=== PATIENT | female | born 1965 | race Caucasian/White ===

== ENCOUNTER 2023-04-10 08:31 | Emergency (ER) | payer OTHER, SELFPAY ==
--- NOTE | ~2023-04-10 | XR_ITS ---
EXAMINATION: XR shoulder RT min 2V INDICATION: Right shoulder pain TECHNIQUE: Four views of the right shoulder are submitted. COMPARISON: None FINDINGS: Normal alignment. No fracture. Glenohumeral and acromioclavicular joint spaces are normal. Soft tissues are unremarkable. IMPRESSION: 1. No acute osseous abnormality. Reviewed, dictated and finalized at location L. ER INSULATOR
--- NOTE | ~2023-04-10 | XR_ITS ---
EXAMINATION: XR wrist RT min 3V INDICATION: Right wrist pain TECHNIQUE: Four views of the right wrist are obtained. COMPARISON: None available FINDINGS: Bone alignment is normal. There is no fracture. There is soft tissue swelling of the wrist. IMPRESSION: 1. No acute osseous abnormality. Reviewed, dictated and finalized at location L. CARRIER
--- NOTE | ~2023-04-10 | XR_ITS ---
EXAMINATION: XR elbow RT min 3V INDICATION: Right elbow pain TECHNIQUE: Four views of the right elbow are obtained. COMPARISON: None available FINDINGS: No fracture, dislocation, or subluxation. The bones, soft tissues, and joint spaces are nor mal. IMPRESSION: 1. No acute osseous abnormality. Reviewed, dictated and finalized at location L. LLITE COMMUNICATIONS ENGINEER
[2023-04-10 08:50] VITALS: BP 126/73; PULSE 70; RESP 18; TEMP 36.6; O2SAT 100
--- NOTE | 2023-04-10 10:05 | ED.UPPEXIN ---
HPI - Extremity Injury (Upper) General Chief Complaint: Extremity Injury, Upper Stated Complaint: tripped on sidewalk, KIMBERLY pain Time Seen by Provider: 04/10/23 10:05 Focused HPI: This is a 57-year-old female that presents to the emergency department for right upper extremity pain. Reports she tripped on a curb and fell onto her right shoulder. Reports pain in the shoulder, elbow and wrist. Reports decreased range of motion due to pain. She did not hit her head or lose consciousness. Denies numbness. GENERAL: Well-appearing, well-nourished, and in no acute distress. HEAD: Normocephalic, atraumatic. CHEST: Clear to auscultation. No respiratory distress. HEART: Regular rate and rhythm. EXTREMITIES: Decreased active range of motion in the right shoulder due to pain. No obvious deformity. Normal sensation. Normal radial pulse NEURO: Alert and oriented x3. Patient screened in triage and initial orders placed. Additional care and disposition to be based upon diagnostic testing and treatment. Source: patient Mode of arrival: ambulatory Limitations: no limitations Related Data Allergies Allergy/AdvReac Type Severity Reaction Status Date / Time No Known Drug Allergies Allergy Verified 01/04/11 15:40 Review of Systems Review of Systems: CONSTITUTIONAL: Denies fever MUSCULOSKELETAL: Reports joint pain, and myalgia. NEUROLOGIC: Denies numbness, or weakness. All systems reviewed & are unremarkable except as noted in HPI and below PMFSH Past Medical History Medical History (Updated 04/10/23 @ 12:02 by Alma Gupta PA-C) History of breast cancer Social History Social History (Updated 04/10/23 @ 11:59 by Alma Gupta PA-C) Smoking status: Never smoker Exam Narrative: GENERAL: Well-appearing, well-nourished, and in no acute distress. HEAD: Normocephalic, atraumatic. EYES: PERRLA and EOMI. ENT: Nares clear, no rhinorrhea or epistaxis. Mucous membranes moist. Oropharynx without tonsillar hypertrophy exudate or other lesions. Bilateral TMs pearly chavez non-bulging NECK: Supple. No adenopathy or masses. No midline spinal tenderness CHEST: Clear to auscultation. No respiratory distress. No wheezes rales or rhonchi HEART: Regular rate and rhythm. No murmur heard. Normal peripheral pulses. EXTREMITIES: Normal range of motion. No edema or obvious deformity. Normal sensation. Normal radial pulse SKIN: Warm, dry, no rash. NEURO: No focal deficits. Alert and oriented x3. PSYCH: Normal mood and affect Course Course Emergency Course: Patient updated on her workup and agrees with plan of care Vital Signs Vital signs: Vital Signs Temperature 98 F 04/10/23 08:50 Pulse Rate 70 04/10/23 08:50 Respiratory Rate 18 04/10/23 08:50 Blood Pressure 126/73 04/10/23 08:50 Pulse Oximetry 100 04/10/23 08:50 Oxygen Delivery Room Air 04/10/23 08:50 Temperature 98 F 04/10/23 08:50 Pulse Rate 70 04/10/23 08:50 Respiratory Rate 18 04/10/23 08:50 Blood Pressure 126/73 04/10/23 08:50 Pulse Oximetry 100 04/10/23 08:50 Oxygen Delivery Room Air 04/10/23 08:50 MDM - Extremity Injury (Upper) MDM Narrative Medical decision making narrative: This is a 57-year-old female that presents to the emergency department for right shoulder, elbow and wrist pain after a fall today. She did not hit her head or lose consciousness. She is neurovascularly intact. Right shoulder, elbow, and wrist x-rays are without acute osseous abnormalities. Patient placed in a sling for comfort. Will be given follow-up with Orthopedics. She was updated on her workup and agrees with plan of care. She was given warnings to return to the ER Differential Diagnosis Differential diagnosis: Likely sprain and strain of wrist, dislocation of shoulder and fracture of humerus Imaging Data Radiologist's impression: ITS Impressions Shoulder X-Ray 04/10/23 10:33 IMPRESSION: 1. No acute osseous abnormality
[2023-04-10] MEDS: ACETAMINOPHEN 500 MG TABLET 1000 MG PO (11:45)
== END 2023-04-10 12:25 | disposition home or self-care (01) ==
PROVIDERS: Emergency Provider Physician Assistant; PCP Nurse Practitioner Family
DX: S49.91XA Unspecified injury of right shoulder and upper arm, initial encounter (principal); Z85.3 Personal history of malignant neoplasm of breast; W10.1XXA Fall (on)(from) sidewalk curb, initial encounter
CPT/HCPCS: 73030; 73080; 73110; 99284; A9270

== ENCOUNTER → 2023-04-21 08:55 | Outpatient (CLI) | payer OTHER, SELFPAY ==
--- NOTE | ~2023-04-21 | MR_ITS ---
EXAMINATION: MR shoulder RT wo con DATE: 04/21/2023 09:43 INDICATION: Anterior right shoulder pain. TECHNIQUE: Magnetic resonance imaging (MRI) of the right shoulder was performed without intravenous c ontrast. COMPARISON: Right shoulder radiographs 04/16/2023 FINDINGS: Coracoacromial arch: The acromion undersurface is curved in morphology (type II). There is severe acromioclavicular joint osteoarthritis including inferiorly directed osteophytes. There is moderate subacromial/subdeltoid bu rsitis. Rotator cuff: There is severe supraspinatus tendinopathy and moderate infraspinatus tendinopathy. There is a near f ull-thickness bursal-sided tear of supraspinatus tendon and anterior infraspinatus tendon measuring 1 2 mm anterior to posterior by 4 mm proximal to distal. Teres minor tendon is normal. There is mild camargo bscapularis tendinopathy. There is no asymmetric fatty atrophy of the rotator cuff muscle bellies. Th ere is edema-like marrow signal intensity in greater tuberosity, consistent with stress reaction. Biceps tendon and glenoid labrum: Biceps tendon is in bicipital groove. There is a longitudinal split tear of biceps tendon. There is d egenerative fraying of posterior glenoid labrum. Fluid: There is no glenohumeral joint effusion. Bones/cartilage: Glenoid cartilage is normal. Humeral head cartilage is normal. IMPRESSION: 1. Severe rotator cuff tendinopathy with near full-thickness bursal-sided tear involving supraspinatu s and anterior infraspinatus tendons. 2. Longitudinal split tear of biceps tendon. 3. Degenerative fraying of posterior glenoid labrum. 4. Severe acromioclavicular joint osteoarthritis. 5. Moderate subacromial/subdeltoid bursitis. Reviewed, dictated and finalized at location A. OR SPECIALIST IMPRESSION: 1. Severe rotator cuff tendinopathy with near full-thickness bursal-sided tear involving supraspinatus and anterior infraspinatus tendons. 2. Longitudinal split tear of biceps tendon. 3. Degenerative fraying of posterior glenoid labrum. 4. Severe acromioclavicular joint osteoarthritis. 5. Moderate subacromial/subdeltoid bursitis.
== END ==
PROVIDERS: PCP Nurse Practitioner Family; Visit Provider Nurse Practitioner Family
DX: R07.89 Other chest pain (principal); M75.51 Bursitis of right shoulder; M19.011 Primary osteoarthritis, right shoulder; S43.491D Other sprain of right shoulder joint, subsequent encounter; X58.XXXD Exposure to other specified factors, subsequent encounter
CPT/HCPCS: 73221

== ENCOUNTER 2023-06-01 02:40 | Day surgery (SDC) | payer OTHER, SELFPAY ==
[2023-05-23 14:56] VITALS: BMI 26.6
--- NOTE | 2023-05-23 15:02 | PC.NURSE ---
Report to the Outpatient Waiting Room, entrance under the green pavilion located off [facility], at time 0600 on date 06/01/23. Planned Procedure Time: 0730. Time changes happen often and if your time is changed the preop area will call you the afternoon before. - You and your visitor will be asked to self-screen and do not enter if you have any COVID symptoms. - A mask is optional within the hospital at this time. Patients may have clear liquids (water, carbonated beverages, clear teas, apple juice) until 3 hours prior to surgery with a maximum of 20 ounces. - No food from midnight until time of surgery Take the following medications with a SIP of water the morning of surgery: NONE DO NOT STOP ANY OF YOUR OTHER PRESCRIPTION MEDICATIONS PRIOR TO SURGERY ?EXCEPT THE FOLLOWING Medications to discontinue per physician: N/A Date to take last dose: N/A Please no make-up, nail croatian, hairspray, perfume, deodorant, or body powder the day of surgery. No jewelry (including any body piercings) or valuables the day of surgery, leave them at home. Please take a shower or bath the night before, or the morning of, surgery with an antibacterial soap. Wear comfortable, loose fitting clothing. - Jewelry must be removed prior to entering the operating room. Rings and piercings that are not removed may be cut off. - The hospital will not accept responsibility for valuables. - Please leave all valuables, including medications, at home the day of surgery. If you are going home after surgery, a licensed driver operator must drive you home. - NO public transportation without another adult if you receive anesthesia. - We recommend that an adult stay with you for 24 hours following discharge. - We also recommend that you do not drive, make important decision, drink alcoholic beverages, or take any drugs that were not prescribed by your health care provider for at least 24 hours after your discharge time. Follow any additional instructions given to you from your surgeon. If you or anyone in your household have experienced Covid symptoms in the past week, please notify your surgeon or the nurse liaison at the phone number below for possible testing. Telephone instructions given to PT Roque SUAREZ and asked if any additional questions and then verbalized understanding. Patient advised to call surgeon office or pre surgery nurse liaison [phone] if any additional questions.
[2023-06-01] VITALS (8 sets, daily range): BP systolic 120–138; BP diastolic 68–77; PULSE 70–75; RESP 13–20; TEMP 36.1–36.3; O2SAT 96–100; BMI 27.0
[2023-06-01] MEDS: LACTATED RINGERS 1,000 ML 30 ML IV CONT ×2 (08:55→11:48)
[2023-06-01] MEDS: ACETAMINOPHEN 500 MG TABLET 1000 MG PO (09:08)
[2023-06-01] MEDS: CELECOXIB 200 MG CAPSULE PO (09:08)
--- NOTE | 2023-06-01 09:12 | P.PNAN_ITS ---
Anes - Initial Pre Proc Eval Procedure: Operation Date: 06/01/23 10:30 Proposed Procedures p Right Rotator Cuff Repair - Domingo Diaz MD Date/Time: 06/01/23 09:12 Surgeon: Domingo Diaz MD Pre Op Diagnosis: Rt Shoulder Rot Cuff Tear Patient Data Age: 57 Gender: F Height: 1.63 m Weight: 70.35 kg Allergies Allergy/AdvReac Type Severity Reaction Status Date / Time No Known Allergies Allergy Verified 06/01/23 09:20 Home Medications Medication Instructions Recorded Confirmed Type tamoxifen 20 mg tablet 20 mg PO DAILY 04/20/23 05/23/23 History benzoyl peroxide 5 % topical gel 1 applic topical DAILY #42.5 grams 05/16/23 05/23/23 Rx chlorhexidine gluconate 4 % 1 applic topical ONCE #237 mL 05/16/23 05/23/23 Rx topical liquid (Hibiclens) clindamycin phosphate 1 % topical 1 applic topical DAILY #30 grams 05/16/23 05/23/23 Rx gel Patient hx anesthesia problems: none Family hx anesthesia problems: none Results Review: All pre-operative results and documents have been reviewed as part of the pre- operative evaluation. 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 Results Review: All pre-operative results and documents have been reviewed as part of the pre- operative evaluation. Informed Consent: The patient's anesthetic plan and its attendant risks and benefits were discussed with the patient/family/POA. Questions were solicited and answers provided to the satisfaction of the patient/family/POA.
--- NOTE | 2023-06-01 09:48 | WPDHPUPDATE1 ---
History and Physical Update Update Date/Time: 06/01/23 09:48 History and Physical has been reviewed, including an updated exam of the patient. There are NO changes in the patient's condition. Risks, benefits, and alternatives have been discussed and questions answered. Patient agrees to proceed with procedure.
[2023-06-01] MEDS: ceFAZolin 2 GM/D5W 50 ML 2 GM/50 ML BAG IVPB (10:06)
--- NOTE | 2023-06-01 10:08 | WPDANESPNB ---
Anes - Peripheral Nerve Block Date/Time: 06/01/23 10:08 I have discussed with the patient/family/POA the placement of a peripheral nerve block for post-operative pain management, including associated risks, benefits, complications, and side effects. Alternative methods of post-operative analgesia were detailed. Questions were solicited and answers provided to the satisfaction of the patient/family/POA. Time-Out: A pre-procedural Time-Out was completed immediately before starting the procedure and confirmed: Patient Identification, Site, Procedure, Patient Position and the Availability of Requisite Equipment. Clinical Indications: Acute post-operative pain management requested by the operative surgeon. Nerve Block Insertion Note Anes-nerve block: interscalene right Patient position: supine Skin prep: chlorhexidine Needle: 22 gauge, stimulating, insulated echogenic needle. Needle length: 80 mm Technique: ultrasound Injectate: other (Bupiv 0.5%, 16 mls total. ) Observations: tolerated well Complications: none Procedure start time:: 951 Procedure end time:: 1000
--- NOTE | 2023-06-01 11:37 | W.PM.PROC2 ---
Procedure Note - Detailed Date of Procedure 06/01/23 Pre-op Diagnosis Rt Shoulder Rotator Cuff Tear Post-op Diagnosis Same Procedure Performed REPAIR RIGHT ROTATOR CUFF Surgeon Domingo Diaz MD Anesthesia General Description of Procedure THE PATIENT WAS TAKEN TO THE OPERATING ROOM AND THEN INTUBATED AND PLACED IN THE BEACH CHAIR POSITION. THE RIGHT UPPER EXTREMITY WAS PREPPED AND DRAPED IN THE NORMAL STERILE FASHION. AN INCISION WAS MADE IN BETWEEN THE CHARMAINE-LATERAL ACROMION AND THE AC JOINT. THE FASCIA WAS IDENTIFIED. NEXT A MINI OPEN INCISION WAS MADE THROUGH THE DELTOID MUSCLE EXPOSING THE SUBACROMIAL SPACE. A LIMITED ACROMIOPLASTY WAS PREFORMED. THERE WAS AN EXCESSIVE AMOUNT OF SCARED BURSAE IN THE SUBACROMIAL SPACE. THE BURSAE WAS DEBRIDED. ADHESIONS WERE REMOVED WITH A RONGEUR THE ROTATOR CUFF WAS IDENTIFIED. THERE WAS A FULL THICKNESS TEAR. IT MEASURED APPROXIMATELY 1 CM X 1 CM. THE GREATER TUBEROSITY WAS DEBRIDED TO BLEEDING BONE. 1 ARTHREX 4.5 SUTURE ANCHOR WAS PLACED IN TO GOOD BONE AND HAD VERY GOOD BITES. JEM-RAMBO TYPE REPAIRS WERE DONE TO THE ROTATOR CUFF AND THERE WAS GOOD APPROXIMATION TO THE GREATER TUBEROSITY. THE REPAIR WAS EXCELLENT. THERE WAS NO IMPINGEMENT ON THE REPAIR FROM THE ACROMION WITH RANGE OF MOTION. THE WOUND WAS IRRIGATED WITH COPIOUS AMOUNTS OF ANTIBIOTIC SOLUTION. THE DELTOID MUSCLE WAS REPAIRED WITH #2 FIBER WIRE AND 0 VICRYL SUTURE. THE SUBCUTANEOUS LAYER WAS APPROXIMATED WITH 2-0 VICRYL. THE SKIN WAS APPROXIMATED WITH 3-0 QUIL AND DERMABOND. STERILE DRESSING WAS APPLIED. PATIENT WAS EXTUBATED. Estimated Blood Loss 20 Complications No immediate complications Condition Stable Disposition PACU
== END 2023-06-01 13:36 | disposition home or self-care (01) ==
PROVIDERS: PCP Nurse Practitioner Family; Visit Provider Orthopaedic Surgery
PROC: (CPT 23420; principal; 2023-06-01 10:30)
DX: S46.011A Strain of muscle(s) and tendon(s) of the rotator cuff of right shoulder, initial encounter (principal); W01.0XXA Fall on same level from slipping, tripping and stumbling without subsequent striking against object, initial encounter; G89.18 Other acute postprocedural pain; Z85.3 Personal history of malignant neoplasm of breast; Z79.810 Long term (current) use of selective estrogen receptor modulators (SERMs)
CPT/HCPCS: 23410; 64415; A9270; C1713; J0690; J1100; J1170; J2250; J2371; J2405; J2704; J3010; J7120

== ENCOUNTER 2023-08-14 01:53 | Day surgery (SDC) | payer OTHER, SELFPAY ==
[2023-08-08 15:48] VITALS: BMI 26.6
--- NOTE | 2023-08-08 15:54 | PC.NURSE ---
Report to the Outpatient Waiting Room, entrance under the green pavilion located off [facility], at time _1200_ on date _[id number]_. Planned Procedure Time: _2pm_. Time changes happen often and if your time is changed the preop area will call you the afternoon before. - You and your visitor will be asked to self-screen and do not enter if you have any COVID symptoms. - A mask is optional within the hospital at this time. Patients may have clear liquids (water, carbonated beverages, clear teas, apple juice) until 3 hours prior to surgery with a maximum of 20 ounces. - No food from midnight until time of surgery Take the following medications with a SIP of water the morning of surgery: ___Tamoxifen DO NOT STOP ANY OF YOUR OTHER PRESCRIPTION MEDICATIONS PRIOR TO SURGERY ?EXCEPT THE FOLLOWING Medications to discontinue per physician ____Vitamin d3 Date to take last xpop__[id number] Please no make-up, nail bengali, hairspray, perfume, deodorant, or body powder the day of surgery. No jewelry (including any body piercings) or valuables the day of surgery, leave them at home. Please take a shower or bath the night before, or the morning of, surgery with an antibacterial soap. Wear comfortable, loose fitting clothing. - Jewelry must be removed prior to entering the operating room. Rings and piercings that are not removed may be cut off. - The hospital will not accept responsibility for valuables. - Please leave all valuables, including medications, at home the day of surgery. If you are going home after surgery, a licensed regional company hazmat tanker driver must drive you home. - NO public transportation without another adult if you receive anesthesia. - We recommend that an adult stay with you for 24 hours following discharge. - We also recommend that you do not drive, make important decision, drink alcoholic beverages, or take any drugs that were not prescribed by your health care provider for at least 24 hours after your discharge time. Follow any additional instructions given to you from your surgeon. If you or anyone in your household have experienced Covid symptoms in the past week, please notify your surgeon or the nurse liaison at the phone number below for possible testing. Telephone instructions given to __Denae___and asked if any additional questions and then verbalized understanding. Patient advised to call surgeon office or pre surgery nurse liaison [phone] if any additional questions.
[2023-08-14] VITALS (8 sets, daily range): BP systolic 108–146; BP diastolic 57–80; PULSE 60–71; RESP 12–18; TEMP 36.3–36.6; O2SAT 100
--- NOTE | 2023-08-14 07:12 | WPDHPUPDATE1 ---
History and Physical Update Update Date/Time: 08/14/23 07:12 History and Physical has been reviewed, including an updated exam of the patient. There are NO changes in the patient's condition. Risks, benefits, and alternatives have been discussed and questions answered. Patient agrees to proceed with procedure.
--- NOTE | 2023-08-14 13:36 | WPDANESEPPF ---
Anes - Initial Pre Proc Eval Procedure: Operation Date: 08/14/23 14:00 Proposed Procedures p Right Shoulder Manipulation Under Anesthesia - Domingo Diaz MD Date/Time: 08/14/23 13:36 Surgeon: Domingo Diaz MD Pre Op Diagnosis: Adhesive Capsulitis Right Shoulder Patient Data Age: 58 Gender: F Height: 1.63 m Weight: 73 kg Last Vital Signs Temp 36.6 C 08/14/23 12:30 Pulse 65 08/14/23 12:30 Resp 16 08/14/23 12:30 BP 108/58 L 08/14/23 12:30 Pulse Ox 100 08/14/23 12:30 O2 Del Method Room Air 08/14/23 12:30 Allergies Allergy/AdvReac Type Severity Reaction Status Date / Time No Known Allergies Allergy Verified 08/14/23 12:05 Home Medications Medication Instructions Recorded Confirmed Type tamoxifen 20 mg tablet 20 mg PO DAILY 04/20/23 08/14/23 History cholecalciferol (vitamin D3) 125 125 mcg PO DAILY 08/08/23 08/14/23 History mcg (5,000 unit) tablet (Vitamin D3) Patient hx anesthesia problems: none Family hx anesthesia problems: none Results Review: All pre-operative results and documents have been reviewed as part of the pre-operative evaluation. 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 Informed Consent: The patient's anesthetic plan and its attendant risks and benefits were discussed with the patient/family/POA. Questions were solicited and answers provided to the satisfaction of the patient/family/POA.
[2023-08-14] MEDS: methylPREDNISolone ACETATE 80 MG/ML VIAL 160 MG IM (14:12)
--- NOTE | 2023-08-14 14:27 | W.PM.PROC2 ---
Procedure Note - Detailed Date of Procedure 08/14/23 Pre-op Diagnosis Adhesive Capsulitis Right Shoulder Post-op Diagnosis Same Procedure Performed GORDON, INJECTION RIGHT SHOULDER Surgeon Domingo Diaz MD Anesthesia General Description of Procedure THE PATIENT WAS TAKEN TO THE OPERATING ROOM AND PLACED UNDER GENERAL ANESTHESIA. ONCE SHE WAS CHEMICALLY PARALYZED THE RIGHT SHOULDER WAS MANIPULATED UNTIL FULL MOTION WAS ACHIEVED. AUDIBLE ADHESIOLYSIS WAS OBSERVED. NEXT THE RIGHT SHOULDER WAS PREPPED AND DRAPED STERILELY. DEPO MEDROL 80 MG X 2 CC AND MARCAINE 0.5 5 CC WERE INJECTED IN TO THE RIGHT SHOULDER JOINT. THE PATIENT WAS SENT TO THE RECOVERY ROOM IN STABLE CONDITION.
[2023-08-14] MEDS: ACETAMINOPHEN 500 MG TABLET 1000 MG PO (14:30)
[2023-08-14] MEDS: CELECOXIB 200 MG CAPSULE PO (14:30)
[2023-08-14] MEDS: LACTATED RINGERS 1,000 ML 30 ML IV CONT (14:32)
[2023-08-14] MEDS: fentaNYL CITRATE INJ (*CRX) 100 MCG/2 ML VIAL 25 MCG IV PUSH ×8 (14:40→15:09)
[2023-08-14] MEDS: oxyCODONE HCL (*CRX) 5 MG TAB IR PO (15:23)
[2023-08-14] MEDS: ONDANSETRON INJ 4 MG/2 ML VIAL IV PUSH (15:37)
[2023-08-14] MEDS: diphenhydrAMINE HCl INJ 50 MG/ML VIAL 12.5 MG IV PUSH (16:07)
== END 2023-08-14 16:32 | disposition home or self-care (01) ==
PROVIDERS: PCP Nurse Practitioner Family; Visit Provider Orthopaedic Surgery
PROC: (CPT 23700; principal; 2023-08-14 14:00)
DX: M75.01 Adhesive capsulitis of right shoulder (principal); Z98.890 Other specified postprocedural states; Z85.3 Personal history of malignant neoplasm of breast
CPT/HCPCS: 23700; A9270; J0330; J1010; J1200; J2250; J2405; J2704; J2765; J3010; J7120